=== PATIENT | female | born 1965 | race African-American/Black ===

== ENCOUNTER 2016-07-23 11:26 | Outpatient (CLI) | payer MEDICAID ==
[~2016-07-23 11:26] MED LIST: FERRIC CARBOXYMALTOSE 750 MG in NORMAL SALINE 250 ML IV PRN; NORMAL SALINE 250 ML IV PRN
[2016-07-23 11:44] VITALS: BP 147/89
== END 2016-07-23 12:14 | disposition home or self-care (01) ==
LOC: II 11:26 → 5TH 11:29 → II 12:14
PROVIDERS: ATTEND Internal Medicine
PROC: 3E033GC Introduction of Other Therapeutic Substance into Peripheral Vein, Percutaneous Approach (ICD-10-PCS; principal; 2016-07-23)
DX: D50.8 Other iron deficiency anemias (principal); K90.9 Intestinal malabsorption, unspecified
CPT/HCPCS: 96365; J7050; J1439

== ENCOUNTER 2016-07-30 09:39 | Outpatient (CLI) | payer MEDICAID ==
[2016-07-30 10:20] VITALS: BP 124/84
== END 2016-07-30 10:30 | disposition home or self-care (01) ==
LOC: II 09:39
PROVIDERS: ATTEND Internal Medicine
PROC: 3E033GC Introduction of Other Therapeutic Substance into Peripheral Vein, Percutaneous Approach (ICD-10-PCS; principal; 2016-07-30)
DX: D50.8 Other iron deficiency anemias (principal); K90.9 Intestinal malabsorption, unspecified
CPT/HCPCS: 96365; J7050; J1439

== ENCOUNTER → 2016-09-03 | Outpatient (CLI) | payer MEDICAID | LOC: SP 11:09 | PROVIDERS: ATTEND Nurse Practitioner Psychiatric/Mental Health | DX: M79.652 Pain in left thigh (principal); M79.651 Pain in right thigh; M79.89 Other specified soft tissue disorders | CPT/HCPCS: 93970 ==

== ENCOUNTER 2020-05-26 10:03 | Emergency (ER) | payer BC, MEDICAID ==
[2020-05-26] MEDS ORDERED: METOCLOPRAMIDE HCL ORAL SOLN 10 MG/10 ML UDCUP PO ONE (10:34)
[2020-05-26] MEDS ORDERED: MAG HYDROX/AL HYDROX/SIMETH SUSP 30 ML UDCUP PO ONE (10:34)
[2020-05-26] MEDS ORDERED: LIDOCAINE 2% VISCOUS SOLN 15 ML UDCUP PO ONE (10:34)
--- NOTE | 2020-05-26 10:46 | ER Document Report ---
ED General - General Chief Complaint: Sore Throat Stated Complaint: SORE THROAT, Time Seen by Provider: 05/26/20 10:23 Primary Care Provider: ASHLEY GOMEZ MD [Primary Care Provider] - Follow up as needed Notes: CHIEF COMPLAINT: Burning in throat HPI: 55-year-old female with prior history of cleft lip surgery and throat surgery presenting for burning in the throat over the last week. Constant. Patient has been using [id number] medications for reflux which she also has a history of. States this feels slightly different. No fluttering in the chest no radiation into the back or arms. No shortness of breath. No fever. Patient does have a grab setter and ENT in [place] but did not call them prior to coming to the emergency department today. ROS: See HPI - all other systems were reviewed and are otherwise negative Constitutional: no fever Eyes: no drainage, no blurred vision ENT: no runny nose, + sore throat Cardiovascular: no chest pain Resp: no SOB, no cough GI: no vomiting, no diarrhea, no abdominal pain : no dysuria Integumentary: no rash Allergy: no hives Musculoskeletal: no extremity pain or swelling Neurological: no numbness/tingling, no weakness MEDICATIONS: I agree with the patient medications as charted by the RN. ALLERGIES: I agree with the allergies as charted by the RN. PAST MEDICAL HISTORY/PAST SURGICAL HISTORY: Reviewed and agree as charted by RN. SOCIAL HISTORY: Reviewed and agree as charted by RN. FAMILY HISTORY: No significant familial comorbid conditions directly related to patient complaint EXAM: Reviewed vital signs as charted by RN. CONSTITUTIONAL: Alert and oriented and responds appropriately to questions. Well-appearing; well-nourished HEAD: Normocephalic; atraumatic EYES: PERRL; Conjunctivae clear, sclerae non-icteric ENT: normal nose; no rhinorrhea; moist mucous membranes; pharynx without lesions noted, no uvula edema. The uvula is deviated away from normal position likely secondary to the surgery, no tonsillar hypertrophy, phonation normal NECK: Supple without meningismus; non-tender; no cervical lymphadenopathy, no masses CARD: RRR; no murmurs, no clicks, no rubs, no gallops; symmetric distal pulses RESP: Normal chest excursion without splinting or tachypnea; breath sounds clear and equal bilaterally; no wheezes, no rhonchi, no rales, pulse oximetry 97% on room air not hypoxic ABD/GI: Normal bowel sounds; non-distended; soft, non-tender, no rebound, no guarding; no palpable organomegaly or masses. BACK: The back appears normal and is non-tender to palpation, there is no CVA tenderness EXT: Normal ROM in all joints; non-tender to palpation; no cyanosis, no effusions, no edema SKIN: Normal color for age and race; warm; dry; good turgor; no acute lesions noted NEURO: Moves all extremities equally; Motor and sensory function intact PSYCH: The patient's mood and manner are appropriate. Grooming and personal hygiene are appropriate. MDM: 55-year-old female brought for burning sensation in the throat and upper chest region over the last week constant in nature. I suspect GERD. She has a history of GERD. Low suspicion for ACS. She reports no significant cardiac issues. EKG sinus tachycardia with a ventricular rate of 100 the patient is very anxious. OR 128 QT 360 QTc 465. There is left ventricular hypertrophy. Abnormal EKG. Interpreted by emergency department physicians. It is unchanged from EKG December 29, 2015. Will obtain 1 set of screening cardiac labs on this patient given her atypical presentation of if normal anticipate discharge to follow-up with her grab setter The patient was evaluated during the global COVID-19 pandemic and that diagnosis was suspected/considered upon their initial presentation. Their evaluation, treatment and testing was consistent with current guidelines for patients who present with complaints or symptoms that may be related to COVID-19 TRAVEL OUTSIDE OF THE [place] IN LAST 30 DAYS: No - Related Data Allergies/Adverse Reactions: No Known Allergies Allergy (Verified 08/11/14 11:14) Past Medical History - Social History Smoking Status: Unknown if Ever Smoked Family History: DM Pulmonary Medical History: Reports: Hx Asthma GI Medical History: Reports: Hx Gastroesophageal Reflux Disease Psychiatric Medical History: Reports: Hx Anxiety Infectious Medical History: Denies: Hx MRSA Past Surgical History: Reports: Hx Oral Surgery - cleft palate - Immunizations Hx Diphtheria, Pertussis, Tetanus Vaccination: Yes - 2009 Physical Exam - Vital signs Vitals: Temp Pulse Resp BP Pulse Ox 98.2 F 107 H 20 185/104 H 100 05/26/20 10:08 05/26/20 10:08 05/26/20 10:08 05/26/20 10:08 05/26/20 10:08 Course - Re-evaluation Re-evalutation: 05/26/20 11:57 Patient states GI cocktail did help. She is otherwise with nonactionable labs. EKG normal. Low suspicion for ACS. Will discharge home to follow-up with her grab setter. We will keep patient on Carafate. - Vital Signs Vital signs: Temp Pulse Resp BP Pulse Ox 98.2 F 107 H 20 185/104 H 100 05/26/20 10:08 05/26/20 10:08 05/26/20 10:08 05/26/20 10:08 05/26/20 10:08 - Laboratory Results Result Diagrams: 05/26/20 10:50 05/26/20 10:50 Laboratory Results Interpreted: 05/26/20 05/26/20 10:50 10:50 Hgb 11.2 L Hct 35.7 L MCH 26.4 L MCHC 31.4 L RDW 19.3 H Alkaline Phosphatase 215 H Critical Laboratory Results Reviewed: No Critical Results - Radiology Results Critical Radiology Results Reviewed: No Critical Results Discharge - Discharge Clinical Impression: Reflux esophagitis Qualifiers: Esophagitis bleeding: without hemorrhage Qualified Code(s): K21.00 - Gastro- esophageal reflux disease with esophagitis, without bleeding Condition: Stable Disposition: HOME, SELF-CARE Additional Instructions: Increase your omeprazole or Protonix to 40 mg once daily for the next 5 days. Take the Carafate as prescribed. Follow-up with your grab setter next week as scheduled Prescriptions: Sucralfate [Carafate Susp 1 Gm/10 Ml Udcup] 1 gm PO QID #200 ml Referrals: ASHLEY GOMEZ MD [Primary Care Provider] - Follow up as needed
[2020-05-26 11:06] LABS: ABSOLUTE BASOPHILS # (AUTO) 0.1 10^3/uL (0.0-0.2); ABSOLUTE EOSINOPHILS # (AUTO) 0.1 10^3/uL (0.0-0.6); ABSOLUTE LYMPHOCYTES (AUTO) 1.2 10^3/uL (0.5-4.7); ABSOLUTE MONOCYTES (AUTO) 0.5 10^3/uL (0.1-1.4); ABSOLUTE NEUT (AUTO) 5.3 10^3/uL (1.7-8.2); BASOPHILS % (AUTO) 1.5 % (0-2); EOSINOPHILS % (AUTO) 1.1 % (0-6); HEMATOCRIT 35.7 % (36.0-47.0); HEMOGLOBIN 11.2 g/dL (12.0-15.5); MEAN CORPUSCULAR HEMOGLOBIN 26.4 pg (27.0-33.4); MEAN CORPUSCULAR HGB CONC 31.4 g/dL (32.0-36.0); MEAN CORPUSCULAR VOLUME 84 fl (80-97); MONOCYTES % (AUTO) 6.5 % (3-13); PLATELET COUNT 358 10^3/uL (150-450); RED BLOOD COUNT 4.24 10^6/uL (3.72-5.28); RED CELL DISTRIBUTION WIDTH 19.3 % (11.5-14.0); SEGMENTED NEUTROPHILS % (AUTO) 73.9 % (42-78); TOTAL CELLS COUNTED % (AUTO) 100 %; WHITE BLOOD COUNT 7.1 10^3/uL (4.0-10.5)
[2020-05-26 11:31] LABS: ALKALINE PHOSPHATASE 215 U/L (38-126); ANION GAP 10 (5-19); ASPARTATE AMINO TRANSFERASE 36 U/L (14-36); BILIRUBIN,DIRECT 0.4 mg/dL (0.0-0.4); BILIRUBIN,TOTAL 0.6 mg/dL (0.2-1.3); BLOOD UREA NITROGEN 13 mg/dL (7-20); CALCIUM 9.8 mg/dL (8.4-10.2); CARBON DIOXIDE 25 mmol/L (22-30); CHLORIDE 106 mmol/L (98-107); GLUCOSE 101 mg/dL (75-110); POTASSIUM 3.6 mmol/L (3.6-5.0); TOTAL PROTEIN 6.8 g/dL (6.3-8.2)
[2020-05-26 12:09] VITALS: BP 164/98
--- NOTE | 2020-05-26 16:56 | EKG REPORT ---
SEVERITY:- ABNORMAL ECG - SINUS TACHYCARDIA LEFT VENTRICULAR HYPERTROPHY : Confirmed by: Trenton Domingo MD 26-May-2020 16:55:40
== END 2020-05-26 12:09 | disposition home or self-care (01) ==
LOC: ER 10:03
DX: K21.00 Gastro-esophageal reflux disease with esophagitis, without bleeding (principal); J02.9 Acute pharyngitis, unspecified; R00.0 Tachycardia, unspecified; R41.9 Unspecified symptoms and signs involving cognitive functions and awareness; J45.909 Unspecified asthma, uncomplicated
CPT/HCPCS: 93005; 99284; 36415; 85025; 80053; 84484; 93010; J3490